=== PATIENT | male | born 2000 | race American Indian/Alaskan Native ===

== ENCOUNTER 2021-01-28 20:41 | Emergency (ER) | payer SELFPAY ==
[2021-01-28 23:30] VITALS: BP 121/60
[2021-01-29] MEDS ORDERED: IBUPROFEN 600 MG TAB PO ONE
--- NOTE | 2021-01-29 00:23 | Emergency Department Report ---
ED Upper Extremity Inj HPI - General Chief Complaint: Extremity Injury, Upper Stated Complaint: LT WRIST PAIN Time Seen by Provider: 01/29/21 00:00 Source: patient Mode of arrival: Ambulatory Limitations: No Limitations - History of Present Illness Initial Comments: Patient is a 20-year-old male presents emergency room with complaints of a left wrist injury that occurred 3 days ago. Patient states that 3 days ago he was moving furniture. He states that he was moving a couch inside of the door and twisted his left wrist. He states since then he has had wrist pain. He states that hurts to rotate the wrist. He is left-hand dominant. He denies any numbness or weakness. No past medical history. no allergies to medication. - Related Data Previous Rx's Medication Instructions Recorded Last Taken Type Naproxen [EC-Naprosyn] 500 mg PO BID PRN #14 tablet. 01/29/21 Unknown Rx Allergies Allergy/AdvReac Type Severity Reaction Status Date / Time No Known Allergies Allergy Unverified 01/28/21 23:30 ED Review of Systems ROS: Stated complaint: LT WRIST PAIN Other details as noted in HPI Comment: All other systems reviewed and negative ED Past Medical Hx - Past Medical History Previous Medical History?: No - Surgical History Past Surgical History?: No - Medications Home Medications: Home Medications Medication Instructions Recorded Confirmed Last Taken Type Naproxen [EC-Naprosyn] 500 mg PO BID PRN #14 tablet. 01/29/21 Unknown Rx ED Physical Exam - General Limitations: No Limitations General appearance: alert, in no apparent distress - Head Head exam: Present: atraumatic, normocephalic - Eye Eye exam: Present: normal appearance - ENT ENT exam: Present: mucous membranes moist - Respiratory Respiratory exam: Absent: respiratory distress, accessory muscle use - Extremities Exam Extremities exam: Present: other (ttp to the left medial wrist, no ttp to the lateral wrist, no snuffbox ttp, no deformity, no edema, FROM of the LUE, neuro vascularly intact) - Neurological Exam Neurological exam: Present: alert, oriented X3 - Psychiatric Psychiatric exam: Present: normal affect, normal mood - Skin Skin exam: Present: warm, dry, intact ED Course Vital Signs 01/28/21 01/29/21 23:26 01:20 Temperature 97.9 F Pulse Rate 60 72 Respiratory 16 16 Rate Blood Pressure 121/60 [Right] O2 Sat by Pulse 100 98 Oximetry ED Medical Decision Making - Radiology Data Radiology results: report reviewed Ordering Physician: DEION JIMENEZ Date of Service: 01/29/21 Procedure(s): XR wrist 3+V LT Accession Number(s): [id number] cc: DEION JIMENEZ Fluoro Time In Minutes: LEFT WRIST 3 VIEWS INDICATION / CLINICAL INFORMATION: left wrist pain after moving couch COMPARISON: None available. FINDINGS: BONES / JOINT(S): No acute fracture or subluxation. No significant arthritis. SOFT TISSUES: No significant abnormality. ADDITIONAL FINDINGS: None. Signer Name: Eric Lee MD Signed: 01/29/2021 12:47 AM Workstation Name: [id number] Transcribed By: ES Dictated By: Eric Lee MD Electronically Authenticated By: Eric Lee MD Signed Date/Time: 01/29/2146 DD/ TD/TT: - Medical Decision Making Patient is a 20-year-old male presents emergency room with complaints of a left wrist injury that occurred 3 days ago. Patient states that 3 days ago he was moving furniture. He states that he was moving a couch inside of the door and twisted his left wrist. He states since then he has had wrist pain. He states that hurts to rotate the wrist. He is left-hand dominant. He denies any numbness or weakness. No past medical history. no allergies to medication. Vitals are normal. On exam:ttp to the left medial wrist, no ttp to the lateral wrist, no snuffbox ttp, no deformity, no edema, FROM of the LUE, neurovascularly intact. X-ray left wrist: BONES / JOINT(S): No acute fracture or subluxation. No significant arthritis. SOFT TISSUES: No significant abnormality. ADDITIONAL FINDINGS: None. Patient given prescription for naproxen. Advised patient Please take medication as prescribed. Follow-up with orthopedic doctor. May use ice for 15 minutes at a time, rest, elevation of the arm. Do not wear Joseph bandage too tightly and do not wear at night while sleeping. Return to emergency room for new or symptoms. Critical care attestation.: If time is entered above; I have spent that time in minutes in the direct care of this critically ill patient, excluding procedure time. ED Disposition Clinical Impression: Left wrist sprain Qualifiers: Encounter type: initial encounter Qualified Code(s): S63.502A - Unspecified sprain of left wrist, initial encounter Disposition: TO HOME OR SELFCARE Is pt being admited?: No Does the pt Need Aspirin: No Condition: Stable Instructions: Wrist Sprain, Adult Additional Instructions: Please take medication as prescribed. Follow-up with orthopedic doctor. May use ice for 15 minutes at a time, rest, elevation of the arm. Do not wear Joseph bandage too tightly and do not wear at night while sleeping. Return to emergency room for new or symptoms. Prescriptions: Naproxen [EC-Naprosyn] 500 mg PO BID PRN #14 tablet.dr DA SILVA Reason: pain Referrals: KELLI ARAUJO MD [Staff Physician] - 2-3 Days [facility] [Provider Group] - 2-3 Days Forms: Work/School Release Form(ED) Time of Disposition: 01:00 Print Language: JAPANESE
--- NOTE | 2021-01-29 00:52 | XRay Report ---
LEFT WRIST 3 VIEWS INDICATION / CLINICAL INFORMATION: left wrist pain after moving couch COMPARISON: None available. FINDINGS: BONES / JOINT(S): No acute fracture or subluxation. No significant arthritis. SOFT TISSUES: No significant abnormality. ADDITIONAL FINDINGS: None. Signer Name: Eric Lee MD Signed: 01/29/2021 12:47 AM Workstation Name: [id number]
== END 2021-01-29 01:20 | disposition home or self-care (01) ==
LOC: ED 20:41
DX: S63.502A Unspecified sprain of left wrist, initial encounter (principal); Z79.899 Other long term (current) drug therapy; X58.XXXA Exposure to other specified factors, initial encounter; Y93.89 Activity, other specified; Y92.89 Other specified places as the place of occurrence of the external cause; Y99.8 Other external cause status